=== PATIENT | female | born 1995 | race Caucasian/White ===

== ENCOUNTER 2017-11-08 19:42 | Emergency (ER) | payer SELFPAY ==
[~2017-11-08] VITALS: Ht 165.1 cm; Wt 55.0 kg
[~2017-11-08 19:42] MED LIST: ARIP2 PO
[2017-11-08 20:09] VITALS: BP 116/82; PULSE 82; RESP 20; TEMP 98.2; O2SAT 82
--- NOTE | 2017-11-08 20:58 | PD ---
HPI Chief Complaint: General Weakness Time Seen by Provider: 20:37 Travel History International Travel<30 days: No Contact w/Intl Traveler<30days: No Traveled to known affect area: No History of Present Illness HPI The patient is a 22 year old female who presents to the [facility] emergency department with a history of reportedly not feeling well since Thursday this past week. 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 She reports that the seafood included squared, oysters, and also deviled eggs. The patient reports that she then went home and went to bed and on Thursday she began to have numbness and tingling to her extremities. The patient reports that the numbness and tingling began in her calves and then seemed to spread up into the back of her legs and arms. The patient went to [facility] regarding the symptoms and was admitted to their ICU with a presumptive diagnosis of Guillain-Morales. She reports that she underwent lumbar puncture which was reportedly negative, and MRIs of the spine that showed no other acute abnormality. She reports that she was on immunoglobulin up until today when she was discharged. She reports that they were unable to give her a definitive diagnosis, therefore she went home, took a shower, and then came to this emergency department for additional evaluation. She reports having numbness now along the lateral aspect of her arms that extends into the ventral wrists bilaterally. She also reports having a numbness along the posterior thighs. She denies having any loss of bowel or bladder control. She denies having any shortness of breath. The patient reports having a sore sensation to her muscles which she describes as a swollen sensation in the muscles of, arms and legs. She reports that overall her symptoms have improved, however she is concerned that no one was what her diagnosis was. On review of systems otherwise, the patient denies having any known recent fevers, cough or congestion, chest pain, abdominal pain, diarrhea, urinary symptoms, vision changes, dizziness, difficulty with word finding ability, or headaches. LMP: The beginning of October. [facility] Past Medical History Narrative Medical The patient's past medical history is significant for and anxiety disorder, headaches. ADHD: No Cancer: No Cardiovascular Problems: No Diabetes: No Diminished Hearing: No Medical other: Yes (POSSIBLE GB) Psychiatric: Yes (ADJUSTMENT DISORDER) Immunizations Current: Yes Migraines: Yes Seizures: No Thyroid Disease: No Ulcer: No Tetanus Vaccination: Unknown Influenza Vaccination: No ?: Not Menopausal: No : 0 Past Surgical History Narrative Surgical The patient's past surgical history is significant for a 2. Abdominal Surgery: Yes (C SECTION) Section: Yes (X2) Social History Alcohol Use: No Tobacco Use: No Substance Use: No Allergies-Medications (Allergen,Severity, Reaction): Coded Allergies: No Known Allergies (Unverified Adverse Reaction, Unknown, 11/08/17) Reported Meds & Prescriptions Reported Meds & Active Scripts Active No Active Prescriptions or Reported Medications Review of Systems Except as stated in HPI: all other systems reviewed are Neg General / Constitutional: No: Fever Eyes: No: Visual changes HENT: Positive: Neck Pain, No: Headaches, Neck Stiffness Cardiovascular: No: Chest Pain or Discomfort Respiratory: No: Shortness of Breath Gastrointestinal: No: Abdominal Pain Genitourinary: No: Dysuria Musculoskeletal: Positive: Myalgias, Pain Skin: No Rash Neurologic: Positive: Paresthesia, Sensory Disturbance, No: Weakness, Focal Abnormalities, Change in Mentation, Slurred Speech Psychiatric: No: Depression Endocrine: No: Polydipsia Hematologic/Lymphatic: No: Easy Bruising Physical Exam Narrative General: The patient is a well-developed well-nourished female in no acute distress. Head and Neck exam: Head is normocephalic atraumatic. Eyes: EOMI, pupils are equal round and reactive to light. Nose: Midline septum with pink mucous membranes Mouth: Dentition unremarkable. Moist mucus membranes. Posterior oropharynx is not erythematous. No tonsillar hypertrophy. Uvula midline. Airway patent. Neck: No palpable lymphadenopathy. No nuchal rigidity. No thyromegaly. Cardiovascular: Regular rate and rhythm without murmurs, gallops, or rubs. No pulse deficit to the extremities. Lungs: Clear to auscultation bilaterally. No wheezes, rhonchi, or rales. Abdomen: Soft, without tenderness to palpation in all 4 quadrants of the abdomen. No guarding, rebound, or rigidity. Normal bowel sounds are audible. No tenderness on palpation of McBurney's point. Negative Jerome sign. Extremities: No clubbing, cyanosis, or edema. 2+ pulses in all 4 extremities. Back: No spinous process tenderness to palpation. No costovertebral angle tenderness to palpation. Neurologic Exam: Cranial nerves 2-12 were intact on exam. Strength is 5/5 in all 4 extremities. The patient reports having tingling sensations along the lateral aspect of bilateral arms mainly involving the radial side of both arms, ventral aspect along with numbness to the ventral wrist bilaterally. The patient additionally reports having tingling sensations along the posterior thighs. 2+ deep tendon reflexes noted. Skin Exam: No rash noted. Intact skin that is warm and dry. Data Data Last Documented VS Vital Signs Date Time Temp Pulse Resp B/P (MAP) Pulse Ox O2 Delivery O2 Flow Rate FiO2 11/08/17 20:09 98.2 82 20 116/82 (93) 82 Orders Orders Electrocardiogram (11/08/17 20:50) Complete Blood Count With Diff (11/08/17 20:50) Comprehensive Metabolic Panel (11/08/17 20:50) C-Reactive Protein (Crp) (11/08/17 20:50) Lipase (11/08/17 20:50) Urinalysis - C+S If Indicated (11/08/17 20:50) Westergren Sedimentation Rate (11/08/17 20:50) Magnesium (Mg) (11/08/17 20:50) Thyroid Stimulating Hormone (11/08/17 20:50) Iv Access Insert/Monitor (11/08/17 20:50) Ecg Monitoring (11/08/17 20:50) Oximetry (11/08/17 20:50) Ed Urine Pregnancytest Poc (11/08/17 20:50) Creatine Kinase (Cpk) (11/08/17 20:54) Ckmb (Isoenzyme) Profile (11/08/17 20:54) Labs Laboratory Tests Test 11/08/17 21:05 White Blood Count 5.7 TH/MM3 Red Blood Count 4.63 MIL/MM3 Hemoglobin 14.0 GM/DL Hematocrit 40.6 % Mean Corpuscular Volume 87.7 FL Mean Corpuscular Hemoglobin 30.2 PG Mean Corpuscular Hemoglobin Concent 34.5 % Red Cell Distribution Width 13.7 % Platelet Count 232 TH/MM3 Mean Platelet Volume 9.9 FL Neutrophils (%) (Auto) 50.7 % Lymphocytes (%) (Auto) 38.2 % Monocytes (%) (Auto) 10.2 % Eosinophils (%) (Auto) 0.4 % Basophils (%) (Auto) 0.5 % Neutrophils # (Auto) 2.9 TH/MM3 Lymphocytes # (Auto) 2.2 TH/MM3 Monocytes # (Auto) 0.6 TH/MM3 Eosinophils # (Auto) 0.0 TH/MM3 Basophils # (Auto) 0.0 TH/MM3 CBC Comment DIFF FINAL Differential Comment Erythrocyte Sedimentation Rate 45 mm/hr Urine Color YELLOW Urine Turbidity HAZY Urine pH 5.5 Urine Specific Clyde 1.020 Urine Protein NEG mg/dL Urine Glucose (UA) NEG mg/dL Urine Ketones NEG mg/dL Urine Occult Blood NEG Urine Nitrite NEG Urine Bilirubin NEG Urine Urobilinogen LESS THAN 2.0 MG/DL Urine Leukocyte Esterase NEG Urine RBC LESS THAN 1 /hpf Urine WBC 2 /hpf Urine Squamous Epithelial Cells 4 /hpf Urine Bacteria OCC /hpf Urine Mucus FEW /lpf Microscopic Urinalysis Comment CULT NOT INDICATED Blood Urea Nitrogen 12 MG/DL Creatinine 0.75 MG/DL Random Glucose 89 MG/DL Total Protein 9.9 GM/DL Albumin 3.8 GM/DL Calcium Level 8.7 MG/DL Magnesium Level 2.0 MG/DL Alkaline Phosphatase 57 U/L Aspartate Amino Transf (AST/SGOT) 21 U/L Alanine Aminotransferase (ALT/SGPT) 20 U/L Total Bilirubin 0.3 MG/DL Sodium Level 136 MEQ/L Potassium Level 4.1 MEQ/L Chloride Level 101 MEQ/L Carbon Dioxide Level 27.1 MEQ/L Anion Gap 8 MEQ/L Estimat Glomerular Filtration Rate 98 ML/MIN Total Creatine Kinase 89 U/L C-Reactive Protein 0.30 MG/DL Lipase 147 U/L Thyroid Stimulating Hormone 3rd Gen 3.900 uIU/ML MDM Medical Decision Making Medical Screen Exam Complete: Yes Emergency Medical Condition: Yes Medical Record Reviewed: Yes Differential Diagnosis Guillain Morales, versus multiple sclerosis, versus electrolyte derangements, versus endocrine abnormality, versus autoimmune disorder, versus somatizations Narrative Course During the course of the patient's emergency department visit, the patient's history, examination, and differential diagnosis were reviewed with the patient. The patient was placed on a conveyor monitor with oximetry and frequent blood pressure monitoring. The patient had IV access obtained and blood work sent for analysis. The patient will be consented for obtaining records from [facility] regarding her extensive recent workup including lumbar puncture results, MRI scans of her neck and back. The patient had an EKG done on arrival that shows a sinus rhythm the [address] segment elevation. The patient's laboratory studies were reviewed and remarkable for a white count of 5.7, hemoglobin 14, platelets 232 with 10.2 monocytes, CMP is within normal limits, C-reactive protein is 0.30, lipase [address] Chen regarding this patient's case. I reviewed the patient' s laboratory studies, imaging studies from [facility], prior lumbar puncture results. As the patient's symptoms have improved since the initial onset, he agreed that the patient could be followed up as an outpatient. He recommended that she call his office on Thursday for a follow-up appointment and additional testing. The patient is resting comfortably and feels better, is alert and in no distress. The patient's results and examination findings were discussed with the patient. The repeat examination is unremarkable and benign. The history, exam, diagnostic testing, and current condition do not suggest any significant pathology to warrant further testing, continued ED treatment, admission, or surgical evaluation at this point. The vital signs have been stable. The patient does not have uncontrollable pain, intractable vomiting, or other significant symptoms. The patient's condition is stable and appropriate for discharge. The patient will pursue further outpatient evaluation with a primary care physician or other designated or consulting physician as indicated in the discharge instructions. The patient is instructed to report back to the emergency department immediately for reexamination in the mean time if she develops any new or worsening signs or symptoms. The patient expressed understanding and was agreeable with this plan. Physician Communication Physician Communication The patient's case including history, pertinent physical examination findings, and laboratory studies were discussed with Dr. Chen at 11:45. It was agreed that the patient could follow up as an outpatient with him. He recommended that she call on Thursday to his office for a follow-up appointment. Diagnosis Primary Impression: Paresthesia Additional Impression: Nausea Referrals: Cirilo Chen MD 2 days Patient Instructions: General Instructions, Paresthesia (ED) Med/Other Pt SpecificInfo: Prescription(s) given Scripts Ondansetron Odt (Zofran Odt) 4 Mg Tab 4 MG SL Q6HR Y for Nausea/Vomiting, #7 TAB 0 Refills Prov: Minnie Pinon MD 11/08/17 Disposition: 01 DISCHARGE HOME Condition: Stable Minnie Pinon MD November 08, 2017 20:58
[2017-11-08 21:33] LABS: AUTOMATED NEUTROPHIL # 2.9 TH/MM3 (1.8-7.7); BASOPHIL % 0.5 % (0.0-2.0); EOSINOPHIL % 0.4 % (0.0-4.0); HEMATOCRIT 40.6 % (35.0-46.0); LYMPH % 38.2 % (9.0-44.0); LYMPHOCYTE # 2.2 TH/MM3 (1.0-4.8); MEAN CELL VOLUME 87.7 FL (80.0-100.0); MEAN CORPUSCULAR HEMOGLOBIN 30.2 PG (27.0-34.0); MEAN CORPUSCULAR HGB CONC 34.5 % (32.0-36.0); MEAN PLATELET VOLUME 9.9 FL (7.0-11.0); MONO % 10.2 % (0.0-8.0); MONOCYTE # 0.6 TH/MM3 (0-0.9); NEUT % 50.7 % (16.0-70.0); PLATELET COUNT 232 TH/MM3 (150-450); RED BLOOD COUNT 4.63 MIL/MM3 (4.00-5.30); RED CELL DISTRIBUTION WIDTH 13.7 % (11.6-17.2); WHITE BLOOD COUNT 5.7 TH/MM3 (4.0-11.0)
[2017-11-08 21:48] LABS: ALBUMIN 3.8 GM/DL (3.4-5.0); AST (GOT) 21 U/L (15-37); BICARBONATE 27.1 MEQ/L (21.0-32.0); BLOOD UREA NITROGEN 12 MG/DL (7-18); CALCIUM 8.7 MG/DL (8.5-10.1); CHLORIDE 101 MEQ/L (98-107); CREATININE 0.75 MG/DL (0.50-1.00); GLOMERULAR FILTRATION RATE 98 ML/MIN (>89); GLUCOSE,RANDOM 89 MG/DL (74-106); SODIUM (NA) 136 MEQ/L (136-145)
[2017-11-08 21:49] LABS: ALT (GPT) 20 U/L (10-53)
[2017-11-08 21:57] LABS: ALKALINE PHOSPHATASE 57 U/L (45-117); TOTAL BILIRUBIN ADULT 0.3 MG/DL (0.2-1.0); TOTAL PROTEIN 9.9 GM/DL (6.4-8.2)
[2017-11-08 22:00] LABS: BACTERIA, URINE OCC /hpf; BILIRUBIN, URINE NEG (NEG); BLOOD, URINE NEG (NEG); GLUCOSE,URINE NEG (NEG); KETONE, URINE NEG (NEG); MUCUS URINE FEW /lpf (OCC); NITRITE,URINE NEG (NEG); PH, URINE 5.5 (5.0-8.5); SQUAMOUS EPITHELIAL CELL URINE 4 /hpf (0-5); URINE COLOR YELLOW (YELLW/STRAW); URINE LEUKOCYTE ESTERASE NEG (NEG)
[2017-11-08] MEDS ORDERED: ZOFR4TAB3 SL (23:44)
[2017-11-08] MEDS ORDERED: ONDANSETRON ODT 4 MG TAB PO ONE (23:45)
--- NOTE | 2017-11-09 08:10 | EKG ---
Date Performed: 11/08/2017 Time Performed: 21:15:39 PTAGE: 22 years EKG: Sinus rhythm NORMAL ECG NO PREVIOUS TRACING DOCTOR: Otto Looney Interpretating Date/Time 11/09/2017 08:07:43
== END 2017-11-09 00:25 | disposition home or self-care (01) ==
LOC: NEPE 19:42
DX: R20.2 Paresthesia of skin (principal); R11.2 Nausea with vomiting, unspecified
CPT/HCPCS: 80053; 81001; 82550; 83690; 83735; 84443; 84703; 85025; 85652; 86140; 93005; 99284